=== PATIENT | female | born 1950 | race Caucasian/White ===

== ENCOUNTER 2016-07-27 15:07 | Emergency (ER) | payer OTHER, MEDICARE ==
[2016-07-27 15:20] VITALS: BP 122/88; PULSE 93; RESP 18; TEMP 97.7; O2SAT 95
[2016-07-27] MEDS ORDERED: IBUPROFEN 200 MG TAB PO ONE (16:14)
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
== END 2016-07-27 17:38 | disposition home or self-care (01) ==
LOC: CED 15:07
DX: S92.902A Unspecified fracture of left foot, initial encounter for closed fracture (principal); S90.01XA Contusion of right ankle, initial encounter; S50.312A Abrasion of left elbow, initial encounter; E78.5 Hyperlipidemia, unspecified; V03.00XA Pedestrian on foot injured in collision with car, pick-up truck or van in nontraffic accident, initial encounter
CPT/HCPCS: 73610; 73630; G0463

== ENCOUNTER → 2018-07-15 | Outpatient (CLI) | payer OTHER, MEDICARE | LOC: FIMAGING 10:48 | PROVIDERS: ATTEND Internal Medicine | DX: Z12.31 Encounter for screening mammogram for malignant neoplasm of breast (principal) ==